=== PATIENT | female | born 1960 ===

== ENCOUNTER 2017-01-29 11:48 | Emergency (ER) | payer MEDICAID ==
[2017-01-29 11:51] VITALS: BP 113/79; TEMP 97.4; O2SAT 99
[2017-01-29 11:56] VITALS: PULSE 82; RESP 19
--- NOTE | 2017-01-29 12:21 | C.PDOC ---
History Of Present Illness The patient, a 56 y/o female, presents to the ED c/o exacerbation of chronic back pain which began this morning. Patient has history of intermittent back pain for around 1 month. Patient states his pain is normally relieved with Tramadol, but patient ran out of the medication yesterday. Patient states he only takes the medicine when needed. He notes his pain is worse with movement and is localized to his lower back. Patient denies any other associated symptoms. CO EXACERABATION CHRONIC BACK PAIN SINCE THIS MORNING. PS W HO INTERMIT BACK PAIN X 1 MO, NORMALLY RELIEVED W TRAMADOL BUT RAN OUT OF IT YESTERDAY. STATES TAKES IT ONLY WHEN NEEDED. WORSE W MOVEMENT, LOCALIZED LOWER BACK. NO OTHER ASSOC SX EXAM BACK LIMITED FLEX DUE TO PAIN NONTEND NEURO INTACT PSYCH NO S/S ACUTE INTOX CLEAR SPEECH AND THOUGHT GAIT STEADY Time Seen by Provider: 01/29/17 12:03 Chief Complaint (Nursing): Back Pain History Per: Patient History/Exam Limitations: no limitations Onset/Duration Of Symptoms: Intermittent Episodes, Other (1 month ) Current Symptoms Are (Timing): Still Present Quality Of Discomfort: "Pain" Previous Symptoms: Back Pain, Chronic Pain. denies: Neck Pain Associated Symptoms: denies: Incontinence, New Weakness, New Numbness Exacerbating Factor(s): Movement Additional History Per: Patient Past Medical History Reviewed: Historical Data, Nursing Documentation, Vital Signs Vital Signs: Last Vital Signs Temp 97.4 F L 01/29/17 11:53 Pulse 82 01/29/17 11:53 Resp 19 01/29/17 11:53 BP 113/79 01/29/17 11:53 Pulse Ox 99 01/29/17 12:21 - Medical History PMH: Anemia, Anxiety, Asthma, Back Problems, HTN (does not take meds), Hyperthyroidism Surgical History: No Surg Hx Family History: States: Unknown Family Hx - Social History Hx Tobacco Use: No Hx Alcohol Use: Yes Hx Substance Use: No - Immunization History Hx Tetanus Toxoid Vaccination: No Hx Influenza Vaccination: No Hx Pneumococcal Vaccination: No Review Of Systems Except As Marked, All Systems Reviewed And Found Negative. Constitutional: Negative for: Fever, Chills Genitourinary: Negative for: Incontinence Musculoskeletal: Positive for: Back Pain. Negative for: Neck Pain Neurological: Negative for: Weakness, Numbness Physical Exam - Physical Exam Appears: Non-toxic, No Acute Distress Skin: Normal Color, Warm, Dry Head: Atraumatic, Normacephalic Eye(s): bilateral: Normal Inspection Oral Mucosa: Moist Neck: Normal ROM, Supple Chest: Symmetrical, No Deformity, No Tenderness Cardiovascular: Rhythm Regular, No Murmur Respiratory: Normal Breath Sounds, No Rales, No Rhonchi, No Wheezing Back: No Vertebral Tenderness, Decreased ROM (limited flexion due to pain ), No Paraspinal Tenderness Extremity: Normal ROM, No Tenderness, Capillary Refill (less than 2 seconds ) Neurological/Psych: Oriented x3, Normal Speech, Normal Cognition, Other (no signs/symtpoms of acute intoxication. clear speech and thought ) Gait: Steady ED Course And Treatment O2 Sat by Pulse Oximetry: 99 (on RA ) Pulse Ox Interpretation: Normal Progress Note: Pt received Ultram PO. Reevaluation Time: 12:21 Reassessment Condition: Improved (PT ADVISED OF DEPT PAIN MED POLICY. COPY GIVEN ) Disposition Counseled Patient/Family Regarding: Diagnosis, Need For Followup - Disposition Referrals: YOUR,PMD [Other] Disposition: HOME/ ROUTINE Disposition Time: 12:20 Condition: GOOD Additional Instructions: SEE YOUR PMD FOR PAIN MEDICINE REFILL. Instructions: Chronic Back Pain (ED) - Clinical Impression Clinical Impression: Chronic back pain - Scribe Statement The provider has reviewed the documentation as recorded by the Scribe (Mona Nuñez) Provider Attestation: All medical record entries made by the Scribe were at my direction and personally dictated by me. I have reviewed the chart and agree that the record accurately reflects my personal performance of the history, physical exam, medical decision making, and the department course for this patient. I have also personally directed, reviewed, and agree with the discharge instructions and disposition.
== END 2017-01-29 12:25 | disposition home or self-care (01) ==
LOC: C.ER 11:48
DX: M54.9 Dorsalgia, unspecified (principal); G89.29 Other chronic pain

== ENCOUNTER 2017-07-06 07:52 | Emergency (ER) | payer MEDICAID ==
[2017-07-06] MEDS ORDERED: Albuterol-Ipratrop 3 mg / 0.5 (3 ml) UD ONE ×2 (08:07→08:53)
--- NOTE | 2017-07-06 08:32 | C.PDOC ---
History Of Present Illness 57 y/o female, with past medical history of asthma. presents to ED with c/o asthma exacerbation. Patient states she used her asthma pumps at home with little relief. Denies fever, chills, headache, nausea, vomiting, or other associated symptoms. Time Seen by Provider: 07/06/17 08:00 Chief Complaint (Nursing): Shortness Of Breath History Per: Patient History/Exam Limitations: no limitations Current Symptoms Are (Timing): Still Present Quality: Tightness Current Respiratory Medications: See Home Med List Associated Symptoms: denies: Fever, Chills, Dizziness, Anxiety Recent travel outside of the [place]: No Past Medical History Reviewed: Historical Data, Nursing Documentation, Vital Signs Vital Signs: Last Vital Signs Temp 98.4 F 07/06/17 10:45 Pulse 94 H 07/06/17 10:45 Resp 22 07/06/17 10:45 BP 130/80 07/06/17 10:45 Pulse Ox 99 07/06/17 15:37 - Medical History PMH: Anemia, Anxiety, Asthma, Back Problems, HTN (does not take meds), Hyperthyroidism Family History: States: Unknown Family Hx - Social History Hx Tobacco Use: No Hx Alcohol Use: Yes Hx Substance Use: No - Immunization History Hx Tetanus Toxoid Vaccination: No Hx Influenza Vaccination: No Hx Pneumococcal Vaccination: No Review Of Systems Except As Marked, All Systems Reviewed And Found Negative. Constitutional: Negative for: Fever, Chills Cardiovascular: Negative for: Chest Pain Respiratory: Positive for: Cough, Wheezing Gastrointestinal: Negative for: Nausea, Vomiting Skin: Negative for: Rash Neurological: Negative for: Headache, Dizziness Physical Exam - Physical Exam Appears: Non-toxic, No Acute Distress Skin: Normal Color, Warm, Dry Head: Atraumatic, Normacephalic Oral Mucosa: Moist Chest: Symmetrical Cardiovascular: Rhythm Regular Respiratory: Decreased Breath Sounds, No Rales, No Rhonchi, Wheezing ( expiratory ) Gastrointestinal/Abdominal: Soft, No Tenderness, No Guarding, No Rebound Back: Normal Inspection Extremity: Normal ROM, Capillary Refill (< 2 sec.) Neurological/Psych: Oriented x3, Normal Speech, Normal Cognition Gait: Steady ED Course And Treatment O2 Sat by Pulse Oximetry: 99 (RA) Pulse Ox Interpretation: Normal - Radiology CXR: Interpreted by Me CXR Interpretation: Yes: No Acute Disease Progress Note: Tylenol, duoneb treatment, prednisone given. On re-evaluation lungs clear feeling better. discharged in stable condition Reassessment Condition: Improved Medical Decision Making Medical Decision Making: On re-evaluation lungs clear Disposition Counseled Patient/Family Regarding: Studies Performed, Diagnosis, Need For Followup - Disposition Referrals: [facility] [Outside] [facility] [Outside] Disposition: HOME/ ROUTINE Disposition Time: 13:30 Condition: IMPROVED Additional Instructions: Follow up with PMD or clinic for further evaluation Prescriptions: Albuterol HFA [Ventolin HFA 90 mcg/actuation (8 g)] 2 puff IH [id number] #1 puff predniSONE [Prednisone] 60 mg PO DAILY #3 tab Instructions: Asthma (ED) Forms: [employer] ([place]) - POA Present On Arrival: None - Clinical Impression Clinical Impression: Asthma exacerbation, Asthma - 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 - Scribe Statement The provider has reviewed the documentation as recorded by the Scribe SM All medical record entries made by the Scribe were at my direction and personally dictated by me. I have reviewed the chart and agree that the record accurately reflects my personal performance of the history, physical exam, medical decision making, and the department course for this patient. I have also personally directed, reviewed, and agree with the discharge instructions and disposition.
[2017-07-06] MEDS: Albuterol-Ipratrop 3 mg / 0.5 (3 ml) UD IH SCH ×3 (08:45→09:40)
--- NOTE | 2017-07-06 10:17 | RAD ---
HISTORY: Cough r/o CHF COMPARISON: Portable chest 10/16/2014. TECHNIQUE: Chest PA and lateral FINDINGS: LUNGS: No active pulmonary disease. PLEURA: No significant pleural effusion identified. No pneumothorax apparent. CARDIOVASCULAR: Normal. OSSEOUS STRUCTURES: No significant abnormalities. VISUALIZED UPPER ABDOMEN: Normal. OTHER FINDINGS: None. IMPRESSION: No interval acute cardiopulmonary disease appreciated.
[2017-07-06 10:46] VITALS: BP 130/80; PULSE 94; RESP 22; TEMP 98.4
[2017-07-06 15:33] VITALS: O2SAT 99
== END 2017-07-06 11:19 | disposition home or self-care (01) ==
LOC: C.ER 07:52
DX: J45.901 Unspecified asthma with (acute) exacerbation (principal)

== ENCOUNTER 2017-09-20 11:44 | Emergency (ER) | payer MEDICAID ==
[2017-09-20 11:52] VITALS: BMI 23.8
[2017-09-20 11:55] VITALS: RESP 18; O2SAT 100
--- NOTE | 2017-09-20 12:58 | C.PDOC ---
History Of Present Illness 57 yr old female w/PMhx of chr. lower back pain, presents to the ER for evaluation of neck pain, back pain and headache gradually developing for the past 3 days. Patient reports she sustained a mechanical fall while walking outside she slipped and fell, hitting her head on the ground. States the pain is localized over the neck and back, worse with movement. Denies LOC, syncope, severe headache, dizziness, vision changes, focal deficits, nausea, vomiting,CP , SOB, dyspnea, UTI sx, incontinence, saddle anesthesia, denies deformity, weakness to B/L UEs and LEs. Ambulate to Ed for evaluation, not in any apparent distress. Time Seen by Provider: 09/20/17 12:19 Chief Complaint (Nursing): Back Pain History Per: Patient History/Exam Limitations: no limitations Onset/Duration Of Symptoms: Days (3) Past Medical History Reviewed: Historical Data, Nursing Documentation, Vital Signs Vital Signs: Last Vital Signs Temp 98.7 F 09/20/17 11:52 Pulse 78 09/20/17 11:52 Resp 18 09/20/17 11:52 BP 156/104 H 09/20/17 11:52 Pulse Ox 100 09/20/17 15:10 - Medical History PMH: Anemia, Anxiety, Asthma, Back Problems, HTN (does not take meds), Hyperthyroidism Family History: States: No Known Family Hx - Social History Hx Tobacco Use: No Hx Alcohol Use: Yes Hx Substance Use: No - Immunization History Hx Tetanus Toxoid Vaccination: No Hx Influenza Vaccination: No Hx Pneumococcal Vaccination: No Review Of Systems Except As Marked, All Systems Reviewed And Found Negative. Eyes: Negative for: Vision Change Gastrointestinal: Negative for: Nausea, Vomiting, Abdominal Pain Genitourinary: Negative for: Dysuria Musculoskeletal: Positive for: Neck Pain, Back Pain Neurological: Positive for: Headache. Negative for: Weakness, Numbness Physical Exam - Physical Exam Appears: Non-toxic, No Acute Distress Skin: Warm, Dry, No Rash Head: Normacephalic, Other ((+) mild occipital contusion) Eye(s): bilateral: PERRL, EOMI Ear(s): Bilateral: Normal Nose: No Deformity, No Tenderness Oral Mucosa: Moist Tongue: Normal Appearing Lips: Normal Appearing Neck: Normal ROM, Trachea Midline, No Midline Cervical Tenderness, No Paracervical Tenderness, No Step Off Deformity, Supple Chest: Symmetrical, No Deformity, No Tenderness Cardiovascular: Rhythm Regular, No Murmur Respiratory: No Decreased Breath Sounds, No Accessory Muscle Use, No Rales, No Rhonchi, No Stridor, No Wheezing Gastrointestinal/Abdominal: Soft, No Tenderness, No Distention, No Guarding Back: No Vertebral Tenderness, No Decreased ROM, Paraspinal Tenderness (lumbar paraspinal tenderness) Extremity: Normal ROM, No Pedal Edema, No Deformity, No Swelling Neurological/Psych: Oriented x3, Normal Speech, Normal Cognition, Normal Motor, Normal Sensation, Normal Reflexes ED Course And Treatment O2 Sat by Pulse Oximetry: 100 (RA) Pulse Ox Interpretation: Normal - Other Rad X-Ray - LS Spine X-Ray: Interpreted by Me, Viewed By Me Interpretation: (+) DJD, no acute fx or sublux - CT Scan/US CT - Cervical Spine Other Rad Studies (CT/US): Read By Radiologist, Radiology Report Reviewed CT/US Interpretation: Indication: Injury. Comparison: None available. Technique: Axial computed tomography images were obtained of the cervical spine without the use of intravenous contrast. Coronal and sagittal reformatted images were created and reviewed. This CT exam was performed using 1 or more of the following dose reduction techniques: Automated exposure control, adjustment of the MAA and/or kV according to patient size, and/or use of iterative reconstruction technique. Radiation dose: Total exam DLP = 393.24 mGy-cm. Findings: Straightening of the normal cervical lordosis may be related to muscle spasm or positioning. Minimal curvature of the cervical spine convex to the left. Mild multilevel degenerative changes including intervertebral disc space narrowing and small osteophyte formation. There is no evidence of acute fracture or subluxation. Vertebral body heights appear within normal limits. The prevertebral soft tissues and spinolaminar lines appear intact. The lateral masses are preserved. The dens tip is intact. There is proper alignment of the lateral masses of C1 with the C2 vertebral body. Included portions of the thyroid gland appear unremarkable. Included portions of lung apices appear clear. Atherosclerotic calcifications of the aorta. Impression: Straightening of the normal cervical lordosis may be related to muscle spasm or positioning. Minimal curvature of the cervical spine convex the left. No acute fracture or subluxation identified. Degenerative changes. CT - Head Other Rad Studies (CT/US): Read By Radiologist, Radiology Report Reviewed CT/US Interpretation: PROCEDURE: CT HEAD WITHOUT CONTRAST. HISTORY: injury. COMPARISON: Noncontrast head CT performed 10/09/14. TECHNIQUE: Axial computed tomography images were obtained through the head/brain without intravenous contrast. Radiation dose: Total exam DLP = 753.51 mGy-cm. This CT exam was performed using one or more of the following dose reduction techniques: Automated exposure control, adjustment of the mA and/or kV according to patient size, and/or use of iterative reconstruction technique. FINDINGS: HEMORRHAGE: No intracranial hemorrhage. BRAIN: No mass effect or edema. Mild scattered white matter hypodensities, which are nonspecific, but often seen with chronic microvascular ischemic disease. Please note that MRI with diffusion imaging is more sensitive in the detection of acute ischemic event. VENTRICLES: No hydrocephalus. CALVARIUM: Unremarkable. PARANASAL SINUSES: Unremarkable as visualized. No significant inflammatory changes. MASTOID AIR CELLS: Unremarkable as visualized. No inflammatory changes. OTHER FINDINGS: None. IMPRESSION: No acute intracranial pathology identified. Findings as above. Progress Note: On re-evaluation, pt is afebrile, hemodynamicaly stable. Non- toxic. Ambulatory in Ed with stable gait. Head: NC, no defomrity, no open owund. neck: Supple, (-) midline tenderness. Lungs: CTA B/L, BS equal B/L. Abd: benign. neuorlogicaly intact. Imaging review and appears without acute findings. Pt has clinical findingsc /w head injury, post-concusison syndrome, cervical and lumbar strain, s/p mechanical fall. Pt advised. re.f to F/U with PMD, Ortho in 2-3 days for re-eavl. return if any new changes. Medical Decision Making Medical Decision Making: PLAN: * CT - Cervical Spine, Head * X-Ray - LS Spine * Tylenol PO * Zofran PO Disposition Counseled Patient/Family Regarding: Studies Performed, Diagnosis, Need For Followup, Rx Given - Disposition Referrals: [facility] [Outside] Disposition: HOME/ ROUTINE Disposition Time: 15:00 Condition: STABLE Additional Instructions: OBSERVE FOR ANY SIGN OF HAD INJURY-INTRACTABLE HEADACHE, VOMITING, LETHARGY OR ANY OTHER NEW CHANGES.-RETURN TO ED FOR RE-EVALUATION. TAKE PAIN MEDICATION NEED FOR PAIN FOLLOW UP WIT PMD IN 2-3 DAYS FOR RE-EVALUATION. Prescriptions: Methocarbamol [Robaxin] 500 mg PO TID #14 tab traMADol [Ultram] 50 mg PO TID #7 tab Instructions: Head Injury (ED), Cervical Sprain (ED), Post Concussion Syndrome (ED), Back Pain (ED) Forms: [employer] ([place]) - Clinical Impression Clinical Impression: Head injury, Low back strain, Cervical strain, Post concussion syndrome - PA / DOPER / Resident Statement MD/DO has reviewed & agrees with the documentation as recorded. - Scribe Statement The provider has reviewed the documentation as recorded by the Scribe Moira Payne All medical record entries made by the Elisaibpriscilla were at my direction and personally dictated by me. I have reviewed the chart and agree that the record accurately reflects my personal performance of the history, physical exam, medical decision making, and the department course for this patient. I have also personally directed, reviewed, and agree with the discharge instructions and disposition.
--- NOTE | 2017-09-20 14:42 | CT ---
PROCEDURE: CT HEAD WITHOUT CONTRAST. HISTORY: injury COMPARISON: Noncontrast head CT performed 10/09/14 TECHNIQUE: Axial computed tomography images were obtained through the head/brain without intravenous contrast. Radiation dose: Total exam DLP = 753.51 mGy-cm. This CT exam was performed using one or more of the following dose reduction techniques: Automated exposure control, adjustment of the mA and/or kV according to patient size, and/or use of iterative reconstruction technique. FINDINGS: HEMORRHAGE: No intracranial hemorrhage. BRAIN: No mass effect or edema. Mild scattered white matter hypodensities, which are nonspecific, but often seen with chronic microvascular ischemic disease. Please note that MRI with diffusion imaging is more sensitive in the detection of acute ischemic event. VENTRICLES: No hydrocephalus. CALVARIUM: Unremarkable. PARANASAL SINUSES: Unremarkable as visualized. No significant inflammatory changes. MASTOID AIR CELLS: Unremarkable as visualized. No inflammatory changes. OTHER FINDINGS: None. IMPRESSION: No acute intracranial pathology identified. Findings as above.
--- NOTE | 2017-09-20 15:26 | CT ---
CT cervical spine without IV contrast Indication: Injury Comparison: None available. Technique: Axial computed tomography images were obtained of the cervical spine without the use of intravenous contrast. Coronal and sagittal reformatted images were created and reviewed. This CT exam was performed using 1 or more of the following dose reduction techniques: Automated exposure control, adjustment of the MAA and/or kV according to patient size, and/or use of iterative reconstruction technique. Radiation dose: Total exam DLP = 393.24 mGy-cm. Findings: Straightening of the normal cervical lordosis may be related to muscle spasm or positioning. Minimal curvature of the cervical spine convex to the left. Mild multilevel degenerative changes including intervertebral disc space narrowing and small osteophyte formation. There is no evidence of acute fracture or subluxation. Vertebral body heights appear within normal limits. The prevertebral soft tissues and spinolaminar lines appear intact. The lateral masses are preserved. The dens tip is intact. There is proper alignment of the lateral masses of C1 with the C2 vertebral body. Included portions of the thyroid gland appear unremarkable. Included portions of lung apices appear clear. Atherosclerotic calcifications of the aorta. Impression: Straightening of the normal cervical lordosis may be related to muscle spasm or positioning. Minimal curvature of the cervical spine convex the left. No acute fracture or subluxation identified. Degenerative changes.
[2017-09-20 15:43] VITALS: BP 145/84; PULSE 75; TEMP 98.4
--- NOTE | 2017-09-20 15:44 | RAD ---
PROCEDURE: Radiographs of the Lumbar Spine. HISTORY: injury COMPARISON: No prior. FINDINGS: BONES: Normal alignment. No listhesis. No fracture. Marginal osteophytes greater on the right side especially L3-4 and to a lesser extent L4-5 DISC SPACES: L3-4 L4-5 and L5-S1 disc space narrowing OTHER FINDINGS: L5-S1 facet hypertrophic arthrosis IMPRESSION: No fracture or subluxation. Spondylosis and degenerative disc disease
== END 2017-09-20 15:44 | disposition home or self-care (01) ==
LOC: C.ER 11:44
DX: S16.1XXA Strain of muscle, fascia and tendon at neck level, initial encounter (principal); S39.012A Strain of muscle, fascia and tendon of lower back, initial encounter; S00.93XA Contusion of unspecified part of head, initial encounter; F07.81 Postconcussional syndrome; W01.0XXA Fall on same level from slipping, tripping and stumbling without subsequent striking against object, initial encounter

== ENCOUNTER 2017-11-01 18:44 | Emergency (ER) | payer MEDICAID ==
[2017-11-01 18:44] VITALS: BMI 23.8
[2017-11-01 19:04] VITALS: O2SAT 99
[2017-11-01] MEDS ORDERED: Sodium Chloride 0.9% 1,000 ML IV ONE (19:10)
--- NOTE | 2017-11-01 19:10 | C.PDOC ---
History Of Present Illness 57 year old female presents to the ED c/o abdominal pain, mainly located in her RLQ that she rates at a 5/10 for the past 2 days. Patient states her pain has been worsening. Patient denies fever, chill, nausea, vomiting, dysuria, hematuria, diarrhea. Time Seen by Provider: 11/01/17 19:10 Chief Complaint (Nursing): Abdominal Pain History Per: Patient History/Exam Limitations: no limitations Onset/Duration Of Symptoms: Days Current Symptoms Are (Timing): Still Present Pain Scale Rating Of: 5 Location Of Pain/Discomfort: RLQ Radiation Of Pain To:: None Quality Of Discomfort: "Pain" Associated Symptoms: denies: Nausea, Vomiting, Diarrhea, Urinary Symptoms Alleviating Factors: None Recent travel outside of the [place]: No Additional History Per: Patient Abnormal Vaginal Bleeding: No Past Medical History Reviewed: Historical Data, Nursing Documentation, Vital Signs Vital Signs: Last Vital Signs Temp 98.2 F 11/01/17 22:22 Pulse 74 11/01/17 22:22 Resp 18 11/01/17 22:22 BP 146/82 11/01/17 22:22 Pulse Ox 99 11/01/17 22:22 - Medical History PMH: Anemia, Anxiety, Asthma, Back Problems, HTN (does not take meds), Hyperthyroidism Surgical History: No Surg Hx Family History: States: Unknown Family Hx - Social History Hx Tobacco Use: No Hx Alcohol Use: Yes Hx Substance Use: No - Immunization History Hx Tetanus Toxoid Vaccination: No Hx Influenza Vaccination: No Hx Pneumococcal Vaccination: No Review Of Systems Constitutional: Negative for: Fever, Chills Respiratory: Negative for: Cough Gastrointestinal: Positive for: Abdominal Pain. Negative for: Nausea, Vomiting , Diarrhea Genitourinary: Negative for: Dysuria, Vaginal Discharge, Vaginal Bleeding Musculoskeletal: Negative for: Back Pain Skin: Negative for: Rash Neurological: Negative for: Weakness Psych: Negative for: Anxiety Physical Exam - Physical Exam Appears: Non-toxic, No Acute Distress Skin: Warm, Dry Head: Normacephalic Eye(s): bilateral: Normal Inspection Nose: No Discharge, No Deformity Oral Mucosa: Moist Neck: Trachea Midline, Supple Chest: Symmetrical Cardiovascular: Rhythm Regular, No Murmur Respiratory: No Rales, No Rhonchi, No Wheezing Gastrointestinal/Abdominal: Soft, Tenderness (RLQ), Guarding (Voluntary), No Rebound, Other (Tympanic to percussion ) Back: No CVA Tenderness Extremity: Normal ROM, No Tenderness, No Swelling Extremity: Bilateral: Atraumatic Neurological/Psych: Oriented x3 Gait: Steady ED Course And Treatment - Laboratory Results Result Diagrams: 11/01/17 19:30 11/01/17 19:30 ECG: Interpreted By Me, Viewed By Me ECG Rhythm: Sinus Rhythm (76), Nonspecific Changes O2 Sat by Pulse Oximetry: 99 (On RA) Pulse Ox Interpretation: Normal - CT Scan/US CT abd/pelvis Other Rad Studies (CT/US): Read By Radiologist, Radiology Report Reviewed CT/US Interpretation: IMPRESSION: 1. The ovaries appear cystic. A peripheral calcification and septated cyst or several adjacent cysts. are noted in the left ovary. Pelvic ultrasound might be considered particularly if the patient is. postmenopausal. 2. 2 lesions within the liver. One is a simple cyst. A second lesion is ill-defined and not completely. characterized. Recommend follow-up abdominal CT or MR in 6 months. 3. Small hiatal hernia. Progress Note: Plan: - EKG. - CT abd/pelvis. - Labs. - Pepcid 20 mg IVP. - IV fluids. - Toradol 30 mg IVP. - Zofran 4 mg IVP. - UA Reevaluation Time: 23:43 Reassessment Condition: Improved Disposition Counseled Patient/Family Regarding: Studies Performed, Diagnosis, Need For Followup, Rx Given - Disposition Referrals: Janki Morales MD [Staff Provider] - Disposition: HOME/ ROUTINE Disposition Time: 19:10 Condition: FAIR Additional Instructions: Will need repeat US in 6-12 months to check resolution of ovarian cysts Prescriptions: traMADol [Ultram] 50 mg PO TID PRN #15 tab PRN Reason: Pain, Severe (8-10) Instructions: Ovarian Cyst (DC) Forms: [employer] (Spanish) - Clinical Impression Clinical Impression: Abdominal pain, Ovarian cyst, bilateral - Scribe Statement The provider has reviewed the documentation as recorded by the Scribe Scott Shoemaker All medical record entries made by the Scribe were at my direction and personally dictated by me. I have reviewed the chart and agree that the record accurately reflects my personal performance of the history, physical exam, medical decision making, and the department course for this patient. I have also personally directed, reviewed, and agree with the discharge instructions and disposition.
[2017-11-01 19:35] LABS: BASO # 0.1 K/uL (0.0-0.2); EOS # 0.1 K/uL (0.0-0.7); EOS % 0.9 % (0.0-4.0); HEMOGLOBIN 12.2 g/dL (11.0-16.0); LYMPH # 2.9 K/uL (1.0-4.3); LYMPH % 37.9 % (20.0-40.0); MEAN CELL VOLUME 93.2 fL (81.0-99.0); MEAN CORPUSCULAR HEMOGLOBIN 32.7 pg (27.0-31.0); MEAN CORPUSCULAR HGB CONC 35.1 g/dL (33.0-37.0); MEAN PLATELET VOLUME 7.9 fL (7.2-11.7); MONO # 0.8 K/uL (0.0-0.8); MONO % 11.1 % (0.0-10.0); NEUT # 3.7 K/uL (1.8-7.0); NEUT % 49.1 % (50.0-75.0); RBC 3.73 Mil/uL (3.80-5.20); RED CELL DISTRIBUTION WIDTH 16.8 % (11.5-14.5); WHITE BLOOD COUNT 7.6 K/uL (4.8-10.8)
[2017-11-01] MEDS ORDERED: Sodium Chloride 0.9% 1,000 ML ONE (19:35)
[2017-11-01 19:39] LABS: SQUAMOUS EPITHIAL < 1 /hpf (0-5); URINE BILIRUBIN NEGATIVE (NEGATIVE); URINE BLOOD NEGATIVE (NEGATIVE); URINE CLARITY Clear (Clear); URINE COLOR Straw (YELLOW); URINE GLUCOSE (UA) NORMAL (Normal); URINE PROTEIN NEGATIVE (NEGATIVE); URINE UROBILINOGEN NORMAL mg/dL (0.2-1.0)
[2017-11-01 19:42] LABS: URINE BACTERIA RARE (<OCC)
[2017-11-01 19:43] LABS: URINE LEUKOCYTE ESTERASE NEGATIVE Leu/uL (Negative)
[2017-11-01 19:44] LABS: PROTHROMBIN TIME 11.2 SECONDS (9.7-12.2)
[2017-11-01 19:49] LABS: ALT/SGPT 54 U/L (9-52); AST/SGOT 64 U/L (14-36); BLOOD UREA NITROGEN 10 mg/dL (7-17); CALCIUM 8.9 mg/dl (8.6-10.4); GFR AFRICAN-AMERICAN > 60; GFR NON-AFRICAN AMERICAN > 60; LIPASE 130 U/L (23-300)
[2017-11-01] MEDS ORDERED: Iohexol 350mg/ml 100 ML ONE (20:13)
--- NOTE | 2017-11-01 21:44 | CT ---
EXAM: CT Abdomen and Pelvis With Intravenous Contrast EXAM DATE/TIME: Exam ordered 11/01/2017 7:51 PM CLINICAL HISTORY: 57 years old, female; Pain; Abdominal pain; Flank; Right lower quadrant (rlq); Additional info: Rlq and suprapubic pain TECHNIQUE: Axial computed tomography images of the abdomen and pelvis with intravenous contrast. All CT scans at this facility use one or more dose reduction techniques, viz.: automated exposure control; ma/kV adjustment per patient size (including targeted exams where dose is matched to indication; i.e. head); or iterative reconstruction technique. Coronal and sagittal reformatted images were created and reviewed. CONTRAST: 100 mL of OMNIPAQUE 350 administered intravenously. COMPARISON: No relevant prior studies available. FINDINGS: Lower thorax: There is a small hiatal hernia. ABDOMEN: Liver: There is an 8mm subcapsular low density lesion in the lateral segment of the left lobe of the liver with a density measurement of 17 H. A vaguely defined area of low density is noted in the posterior inferior segment of the right lobe of the liver measuring approximately 1.5 cm in maximum diameter. Gallbladder and bile ducts: Unremarkable. No calcified stones. No ductal dilation. Pancreas: Unremarkable. No mass. No ductal dilation. Spleen: Unremarkable. No splenomegaly. Adrenals: Unremarkable. No mass. Kidneys and ureters: Unremarkable. No solid mass. No hydronephrosis. Stomach and bowel: Unremarkable. No obstruction. No mucosal thickening. Appendix: No findings to suggest acute appendicitis. PELVIS: Bladder: Unremarkable. No mass. Reproductive: The uterus is nodular in configuration. Calcification is noted to peripherally in the left ovary.. Internal septations are suggested in the ovary. A 1.8 cm low-density lesion is noted in the right ovary. ABDOMEN and PELVIS: Intraperitoneal space: Unremarkable. No free air. No significant fluid collection. Bones/joints: degenerative changes are noted of the lumbar spine. Soft tissues: There is a 7 mm umbilical hernia containing fat. Vasculature: Unremarkable. No abdominal aortic aneurysm. Lymph nodes: Unremarkable. No enlarged lymph nodes. IMPRESSION: 1. The ovaries appear cystic. A peripheral calcification and septated cyst or several adjacent cysts are noted in the left ovary. Pelvic ultrasound might be considered particularly if the patient is postmenopausal. 2. 2 lesions within the liver. One is a simple cyst. A second lesion is ill-defined and not completely characterized. Recommend follow-up abdominal CT or MR in 6 months. 3. Small hiatal hernia.
--- NOTE | 2017-11-01 23:40 | US ---
EXAM: US Pelvis Complete, Transabdominal CLINICAL HISTORY: 57 years old, female; Pain; Pelvic pain; Prior surgery; Surgery date: 6+ months; Surgery type: 2 c-sections; Additional info: Rlq pain, cystic ovary and calcifications, postmen TECHNIQUE: Real-time transabdominal pelvic ultrasound (complete) with image documentation. COMPARISON: CT - ABD PELVIS IV CONTRAST ONLY 2017-11-01 20:46 FINDINGS: Limitations: Body habitus. Uterus/cervix: Uterus measures 8.2 x 3.3 x 4.5 cm in size. No myometrial mass. Endometrium: 0.4 cm in thickness. Right ovary: 3.3 x 2.5 x 3.8 cm in size. 1.7 x 2.1 x 1.2 cm anechoic lesion. Normal flow. Left ovary: 3.3 x 2.8 x 3.7 cm in size. 2.0 x 1.7 x 2.2 cm anechoic lesion. Peripheral calcification. Normal flow. Free fluid: No significant free fluid. Bladder: Unremarkable as visualized. IMPRESSION: 1. Probable ovarian cysts. Suggest 1 year follow up to evaluate for stability/resolution. 2. Incidental/non-acute findings are described above. EXAM: US Pelvis, Transvaginal CLINICAL HISTORY: 57 years old, female; Pain; Pelvic pain; Prior surgery; Surgery date: 6+ months; Surgery type: 2 c-sections; Additional info: Rlq pain, cystic ovary and calcifications, postmen TECHNIQUE: Real-time transvaginal pelvic ultrasound (complete) with image documentation. Transvaginal imaging was used for better evaluation of the endometrium and adnexa. COMPARISON: CT - ABD PELVIS IV CONTRAST ONLY 2017-11-01 20:46 FINDINGS: Limitations: Body habitus. Uterus/cervix: Uterus measures 8.2 x 3.3 x 4.5 cm in size. No myometrial mass. Endometrium: 0.4 cm in thickness. Right ovary: 3.3 x 2.5 x 3.8 cm in size. 1.7 x 2.1 x 1.2 cm anechoic lesion. Normal flow. Left ovary: 3.3 x 2.8 x 3.7 cm in size. 2.0 x 1.7 x 2.2 cm anechoic lesion. Peripheral calcification. Normal flow. Free fluid: No significant free fluid. Bladder: Empty bladder which cannot be evaluated with this probe.
[2017-11-01 23:48] VITALS: BP 141/89; PULSE 79; RESP 19; TEMP 98
--- NOTE | 2017-11-02 12:15 | CARD ---
APPROVED REPORT EKG Measurement Heart [id number] <Conclusion> Normal sinus rhythm Cannot rule out Anterior infarct, age undetermined Abnormal ECG
== END 2017-11-02 00:12 | disposition home or self-care (01) ==
LOC: C.ER 18:44
DX: N83.201 Unspecified ovarian cyst, right side (principal); N83.202 Unspecified ovarian cyst, left side; R10.31 Right lower quadrant pain; I10 Essential (primary) hypertension
CPT/HCPCS: 74177; 76830; 76856; 80053; 81001; 83690; 85025; 85610; 85730; 93005; 96361; 96374; 96375; 99285; J1885; J2270; J2405; J7040; Q9967

== ENCOUNTER 2017-12-01 09:18 | Emergency (ER) | payer MEDICAID ==
[2017-12-01 09:18] VITALS: BMI 23.8
[2017-12-01 09:37] VITALS: BP 103/71; PULSE 72; RESP 18; TEMP 98; O2SAT 100
--- NOTE | 2017-12-01 12:16 | C.PDOC ---
History Of Present Illness 57 y/o female, with PMhx of chronic back and knee pain, presents to the ER complaining of pain in the lumbar spine. Patient states that the pain radiates to the left buttock, left knee ,and left leg.Patient denies having fever, chills , CP, SOB, and other complaints. . Time Seen by Provider: 12/01/17 10:06 Chief Complaint (Nursing): Lower Extremity Problem/Injury History Per: Patient History/Exam Limitations: no limitations Onset/Duration Of Symptoms: Days Current Symptoms Are (Timing): Still Present Severity: Moderate Past Medical History Reviewed: Historical Data, Nursing Documentation, Vital Signs Vital Signs: Last Vital Signs Temp 98 F 12/01/17 09:35 Pulse 72 12/01/17 09:35 Resp 18 12/01/17 09:35 BP 103/71 12/01/17 09:35 Pulse Ox 100 12/01/17 12:55 - Medical History PMH: Anemia, Anxiety, Asthma, Back Problems, HTN (does not take meds), Hyperthyroidism Other Surgeries: HX of surgeries Family History: States: No Known Family Hx - Social History Hx Tobacco Use: No Hx Alcohol Use: Yes Hx Substance Use: No - Immunization History Hx Tetanus Toxoid Vaccination: No Hx Influenza Vaccination: No Hx Pneumococcal Vaccination: No Review Of Systems Except As Marked, All Systems Reviewed And Found Negative. Constitutional: Negative for: Fever, Chills Cardiovascular: Negative for: Chest Pain Respiratory: Negative for: Shortness of Breath Musculoskeletal: Positive for: Back Pain, Leg Pain Neurological: Negative for: Weakness, Numbness Physical Exam - Physical Exam Appears: Non-toxic, No Acute Distress Skin: Normal Color, Warm Head: Atraumatic, Normacephalic Eye(s): bilateral: Normal Inspection Nose: Normal Oral Mucosa: Moist Neck: Supple Chest: Symmetrical Cardiovascular: Rhythm Regular Respiratory: Normal Breath Sounds, No Rales, No Rhonchi, No Wheezing Back: Normal Inspection, No CVA Tenderness Extremity: Tenderness (left knee), Capillary Refill, Swelling (left knee) Neurological/Psych: Oriented x3, Normal Speech ED Course And Treatment O2 Sat by Pulse Oximetry: 100 (RA) Pulse Ox Interpretation: Normal Medical Decision Making Medical Decision Making: Plan: --X-Ray- Left Knee --Motrin PO --Flexeril PO --Tramadol PO Updates: --Giovanni Wrap has been applied by health aid. Patient has been discharged and told to follow up with PMD. Disposition Counseled Patient/Family Regarding: Diagnosis, Need For Followup, Rx Given - Disposition Referrals: [facility] [Outside] Disposition: HOME/ ROUTINE Disposition Time: 12:13 Condition: STABLE Prescriptions: Ibuprofen [Motrin] 600 mg PO TID #15 tab traMADol/Acetaminophen [Ultracet 37.5/325 mg] 1 tab PO TID PRN #15 tab PRN Reason: pain Instructions: Chronic Pain Forms: General Discharge Instructions, [facility] (Irish), Work Excuse - POA Present On Arrival: None - Clinical Impression Clinical Impression: Chronic back pain, Joint pain, Knee pain, left - Scribe Statement The provider has reviewed the documentation as recorded by the Cesia Garcia Provider Attestation: All medical record entries made by the Elisaibe were at my direction and personally dictated by me. I have reviewed the chart and agree that the record accurately reflects my personal performance of the history, physical exam, medical decision making, and the department course for this patient. I have also personally directed, reviewed, and agree with the discharge instructions and disposition.
--- NOTE | 2017-12-01 15:09 | RAD ---
PROCEDURE: Left Knee Radiographs. HISTORY: Pain. COMPARISON: None. FINDINGS: BONES: No acute fracture or destructive bony lesion identified. JOINTS: Joint space narrowing at the patellofemoral and medial femorotibial compartments is compatible with degenerative osteoarthritis. Osteophytic development is mild at the medial compartment. No additional osteophytes identified. No subluxation or dislocation. JOINT EFFUSION: Trace suprapatellar bursa effusion. OTHER FINDINGS: None. IMPRESSION: No acute fracture, subluxation or dislocation. 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
== END 2017-12-01 13:07 | disposition home or self-care (01) ==
LOC: C.ER 09:18
DX: M54.5 Low back pain (principal); G89.29 Other chronic pain; M25.562 Pain in left knee

== ENCOUNTER 2018-03-21 14:34 | Emergency (ER) | payer MEDICAID ==
[2018-03-21 14:34] VITALS: BMI 23.8
[2018-03-21 15:17] VITALS: BP 143/93; PULSE 83; RESP 18; TEMP 98.2; O2SAT 99
--- NOTE | 2018-03-21 15:33 | C.PDOC ---
History Of Present Illness 57 year old female with past medical history of diabetes type II presents to the ER for medication refill. Patient states she does not take anything for her diabetes because she usually has low blood sugar. She checks her blood sugar 3x per day and so she needs refills on the lancets and test strips. She also states she chronic low back pain for which she sees a pain management physician. She states she is seeing the physician tomorrow however she would like some ibuprofen as she can not afford to purchase it at the moment. ( Annabella Fierro) History Per: Patient History/Exam Limitations: no limitations Time Seen by Provider: 03/21/18 15:30 Chief Complaint (Nursing): Medical Clearance Past Medical History - Medical History PMH: Anemia, Anxiety, Asthma, Back Problems, HTN (does not take meds), Hyperthyroidism Family History: States: Unknown Family Hx - Social History Hx Tobacco Use: No Hx Alcohol Use: Yes Hx Substance Use: No - Immunization History Hx Tetanus Toxoid Vaccination: No Hx Influenza Vaccination: No Hx Pneumococcal Vaccination: No Vital Signs: Last Vital Signs Temp 98.2 F 03/21/18 15:15 Pulse 83 03/21/18 15:15 Resp 18 03/21/18 15:15 BP 143/93 H 03/21/18 15:15 Pulse Ox 99 03/21/18 15:36 Review Of Systems Constitutional: Negative for: Fever, Chills Cardiovascular: Negative for: Chest Pain, Palpitations Respiratory: Negative for: Cough, Shortness of Breath Gastrointestinal: Negative for: Nausea, Vomiting Genitourinary: Negative for: Dysuria Neurological: Negative for: Weakness, Numbness Physical Exam - Physical Exam Appears: Well Skin: Normal Color, Warm Head: Atraumatic, Normacephalic Eye(s): bilateral: Normal Inspection, PERRL, EOMI Oral Mucosa: Moist Cardiovascular: Rhythm Regular Respiratory: Normal Breath Sounds Back: Other (lumbar tenderness ) ED Course And Treatment O2 Sat by Pulse Oximetry: 99 Medical Decision Making Medical Decision Making: Counselled patient to follow up with her PMD in 1 week. (Annabella Fierro) Patient seen by resident and then by me. Patient requesting medication refill of lancets and test strips. No acute complaints. (Katelyn Patel) Disposition Discussed With : Katelyn Patel Doctor Will See Patient In The: ED - Disposition Disposition Time: 15:33 - Disposition Disposition: HOME/ ROUTINE Condition: GOOD Additional Instructions: Patient to follow up with her primary care physician in 1 week. Prescriptions: Lancets/Blood Glucose Strips [Fora [id number] Strp-Lnct] 1 each MC TID 30 Days combo..pkg Forms: [email or web address] (Tanzanian) Print Language: MALAYSIAN - Clinical Impression Clinical Impression: Medication refill - PA / DRAFTER SEISMOGRAPH / Resident Statement MD/DO has reviewed & agrees with the documentation as recorded. MD/DO has examined the patient and agrees with the treatment plan.
== END 2018-03-21 15:48 | disposition home or self-care (01) ==
LOC: C.ER 14:34
DX: Z76.0 Encounter for issue of repeat prescription (principal)

== ENCOUNTER 2018-12-18 13:06 | Emergency (ER) | payer MEDICAID ==
[2018-12-18 13:06] VITALS: BMI 23.8
[2018-12-18 13:38] VITALS: BP 126/88; PULSE 85; RESP 16; TEMP 97.9; O2SAT 100
--- NOTE | 2018-12-18 14:49 | C.PDOC ---
History Of Present Illness 58 y/o female presents to the ER complaining of chronic back pain exacerbation. Patient states that the pain radiates down the left leg. Patient reports that her doctor is . Patient has been prescribed Percocet 10 and Ativan for her back pain. Denies having bowel/bladder incontinence and urinary symptoms. Time Seen by Provider: 12/18/18 13:38 Chief Complaint (Nursing): Back Pain History Per: Patient History/Exam Limitations: no limitations Onset/Duration Of Symptoms: Days Current Symptoms Are (Timing): Still Present Severity: Moderate Past Medical History Reviewed: Historical Data, Nursing Documentation, Vital Signs Vital Signs: Last Vital Signs Temp 97.9 F 12/18/18 13:33 Pulse 85 12/18/18 13:33 Resp 16 12/18/18 13:33 BP 126/88 12/18/18 13:33 Pulse Ox 100 12/18/18 13:33 - Medical History PMH: Anemia, Anxiety, Asthma, Back Problems, HTN (does not take meds), Hyperthyroidism Other Surgeries: Hx of surgeries Family History: States: No Known Family Hx - Social History Hx Tobacco Use: No Hx Alcohol Use: Yes Hx Substance Use: No - Immunization History Hx Tetanus Toxoid Vaccination: No Hx Influenza Vaccination: No Hx Pneumococcal Vaccination: No Review Of Systems Except As Marked, All Systems Reviewed And Found Negative. Genitourinary: Negative for: Dysuria, Incontinence, Hematuria Musculoskeletal: Positive for: Back Pain Physical Exam - Physical Exam Appears: Non-toxic, No Acute Distress Skin: Normal Color, Warm, Dry Head: Atraumatic, Normacephalic Eye(s): bilateral: Normal Inspection Nose: Normal Oral Mucosa: Moist Neck: Supple Chest: Symmetrical Gastrointestinal/Abdominal: Normal Exam, Soft, No Tenderness, No Guarding, No Rebound Back: Other (tenderness in lower back) Extremity: Normal ROM, Tenderness (tenderness in left buttock and thigh), No Swelling Neurological/Psych: Oriented x3, Normal Speech, Normal Motor, Normal Sensation Gait: Steady ED Course And Treatment O2 Sat by Pulse Oximetry: 100 (RA) Pulse Ox Interpretation: Normal Progress Note: Patient treated with Valium 5 mg PO and Toradol 60 mg IM. On re- evaluation, patient feels better. Patient has been discharged and instructed to follow up with PMD and paint mixer machine. Disposition - Disposition Referrals: Fatimah Chan MD [Staff Provider] - Missy Chow APN [Advanced Practice Nurse] - Disposition: HOME/ ROUTINE Disposition Time: 14:47 Condition: STABLE Additional Instructions: Follow up with your PMD and paint mixer machine within 1-2 days. return to Ed if feel worse. Prescriptions: Methocarbamol [Robaxin-750] 750 mg PO TID #30 tab Instructions: Chronic Pain Forms: [employer] (Nicaraguan) - Clinical Impression Clinical Impression: Chronic back pain - PA / HEALTH EDUCATION SPECIALIST / Resident Statement MD/DO has reviewed & agrees with the documentation as recorded. - Scribe Statement The provider has reviewed the documentation as recorded by the Cesia Garcia Provider Attestation All medical record entries made by the Elisaibe were at my direction and personally dictated by me. I have reviewed the chart and agree that the record accurately reflects my personal performance of the history, physical exam, medical decision making, and the department course for this patient. I have also personally directed, reviewed, and agree with the discharge instructions and disposition.
== END 2018-12-18 14:59 | disposition home or self-care (01) ==
LOC: C.ER 13:06
DX: G89.29 Other chronic pain (principal); M54.9 Dorsalgia, unspecified; I10 Essential (primary) hypertension; E05.90 Thyrotoxicosis, unspecified without thyrotoxic crisis or storm
CPT/HCPCS: 96372; 99283; J1885